=== PATIENT | female | born 1940 | race Caucasian/White ===

== ENCOUNTER 2017-06-27 06:15 | Day surgery (SDC) | payer OTHER ==
[2017-06-27 06:59] LABS: ADD MAN DIFF? NO
[2017-06-27 07:00] LABS: BASOPHILS % 0.3 % (0.0-2.0); EOSINOPHILS # 0.2 10^3/ul (0.0-0.5); EOSINOPHILS % 3.5 % (0.0-7.0); HEMATOCRIT 39.7 % (37.0-47.0); HEMOGLOBIN 13.2 g/dl (12.0-16.0); LYMPHOCYTES # 2.1 10^3/ul (0.8-2.9); LYMPHOCYTES % 36.6 % (15.0-51.0); MEAN CORPUSCULAR HEMOGLOBIN 28.9 pg (29.0-33.0); MEAN CORPUSCULAR HGB CONC 33.2 g/dl (32.0-37.0); MEAN CORPUSCULAR VOLUME 87.1 fl (82.0-101.0); MEAN PLATELET VOLUME 9.1 fl (7.4-10.4); MONOCYTE # 0.5 10^3/ul (0.3-0.9); MONOCYTES % 7.9 % (0.0-11.0); NEUTROPHIL # 2.9 10^3/ul (1.6-7.5); NEUTROPHILS % 51.4 % (39.0-77.0); PLATELET COUNT 252 10^3/UL (140-415); RED BLOOD COUNT 4.56 10^6/ul (4.20-5.40); RED CELL DISTRIBUTION WIDTH 13.9 % (11.5-14.5)
[2017-06-27 07:00] LABS: WHITE BLOOD COUNT 5.7 10^3/ul (4.8-10.8)
[2017-06-27 07:18] LABS: INR 1.02; PROTIME 13.5 Sec (11.9-14.9); PT RATIO 1.1
[2017-06-27 07:19] LABS: PARTIAL THROMBOPLASTIN TIME 32.2 Sec (25.0-35.0)
[2017-06-27 07:23] LABS: ANION GAP 19 (8-16); CARBON DIOXIDE 25 mmol/L (21-31); CHLORIDE 107 mmol/L (97-110); GLUCOSE 110 mg/dl (70-220)
[2017-06-27 07:30] LABS: BLOOD UREA NITROGEN 12 mg/dl (7-20); CREATININE 0.85 mg/dl (0.44-1.00); POTASSIUM 3.7 mmol/L (3.5-5.1)
[2017-06-27 07:35] LABS: CALCIUM 10.5 mg/dl (8.4-10.2); SODIUM 147 mmol/L (135-144)
[2017-06-27] MEDS ORDERED: MIDAZOLAM 1 MG/ML 2 ML INJ (08:13)
[2017-06-27] MEDS ORDERED: IODIXANOL LOCM 100 ML BTL (08:13)
[2017-06-27] MEDS ORDERED: VERAPAMIL 5 MG INJ (08:13)
[2017-06-27] MEDS ORDERED: HEPARIN 1000 UNITS/ML 10 ML INJ (08:13)
[2017-06-27] MEDS ORDERED: FENTAnyl 50 MCG/ML VIAL (08:13)
[2017-06-27] MEDS ORDERED: LIDOCAINE 1% (MDV) 20 ML INJ (08:13)
[2017-06-27] MEDS ORDERED: NITROGLYCERIN (IC) 100 MCG/ML INJ (08:14)
[2017-06-27] MEDS ORDERED: SOD CHLORIDE 0.9% 1,000 ML IV (09:29)
[2017-06-27] MEDS ORDERED: AL HYDROX/MG HYDROX/SIMETH 30 ML CUP PO (09:30)
[2017-06-27] MEDS ORDERED: ACETAMINOPHEN 325 MG TAB PO (09:30)
[2017-06-27] MEDS ORDERED: ONDANSETRON 4 MG INJ IV (09:30)
== END 2017-06-27 14:05 | disposition home or self-care (01) ==
LOC: SDS 06:15
DX: I48.2 Chronic atrial fibrillation (principal); R07.2 Precordial pain; E78.2 Mixed hyperlipidemia; I10 Essential (primary) hypertension
CPT/HCPCS: 80048; 85025; 85610; 85730; 93005; 93458